=== PATIENT | male | born 1960 | race Caucasian/White ===

== ENCOUNTER 2019-08-07 09:25 | Emergency (ER) | payer OTHER ==
[~2019-08-07] VITALS: Ht 172.7 cm; Wt 105.0 kg
[2019-08-07] MEDS ORDERED: IBUPROFEN 800MG TABLET PO ONE (10:30)
[2019-08-07] MEDS ORDERED: TRAMADOL 50MG TABLET PO ONE (10:30)
[2019-08-07 12:15] VITALS: BP 129/77
== END 2019-08-07 12:18 | disposition home or self-care (01) ==
LOC: ER 09:25
DX: M79.89 Other specified soft tissue disorders (principal); I11.0 Hypertensive heart disease with heart failure; I50.9 Heart failure, unspecified; F12.10 Cannabis abuse, uncomplicated; Z98.890 Other specified postprocedural states
CPT/HCPCS: 73130; 99283